=== PATIENT | male | born 1985 | race Hispanic/Latino ===

== ENCOUNTER 2020-07-22 17:52 | Emergency (ER) | payer OTHER ==
[~2020-07-22] VITALS: Ht 180.3 cm; Wt 129.3 kg
[2020-07-22] MEDS ORDERED: IBUPROFEN IB200 MG PO (18:30)
[2020-07-22] MEDS ORDERED: ACETAMINOPHEN500 MG PO (18:30)
[2020-07-22] MEDS ORDERED: ULTRAM 50MG50 MG PO (18:35)
[2020-07-22] MEDS ORDERED: KETOROLAC TROMETHAMINE 30 MG/ML VIAL IM ONE (18:45)
[2020-07-22] MEDS ORDERED: ACETAMINOPHEN 325 MG TAB PO ONE (18:45)
== END 2020-07-22 20:17 | disposition home or self-care (01) ==
LOC: FSED 18:09
DX: S32.2XXA Fracture of coccyx, initial encounter for closed fracture (principal); W01.0XXA Fall on same level from slipping, tripping and stumbling without subsequent striking against object, initial encounter; Y93.01 Activity, walking, marching and hiking; Y92.008 Other place in unspecified non-institutional (private) residence as the place of occurrence of the external cause
CPT/HCPCS: 72131; 99283; J1885